=== PATIENT | male | born 1935 | race Caucasian/White ===

== ENCOUNTER 2021-03-18 14:53 | Day surgery (SDC) | payer BC, MEDICARE ==
[~2021-03-18 14:53] MED LIST: Iopamidol-370 76% 500 ML 1 ML ONE
[2021-03-18 15:45] LABS: Hemoglobin 14.1 g/dL (14.0-18.0); Mean Corpuscular HGB CONC 33.9 g/dL (32.0-36.0); Mean Corpuscular Volume 91.3 fL (78.0-98.0); Mean Platelet Volume 12.3 fL (7.4-10.4); Platelet Count 107 thou/uL (130-400); RBC Distribution Width 15.5 % (11.5-14.5); Red Blood Cell (RBC) Count 4.57 mill/uL (4.70-6.10); White Blood Cell (WBC) Count 15.6 thou/uL (4.8-10.8)
[2021-03-18 16:03] LABS: Anisocytosis SLIGHT = 6-15 cells (100X) (0-5/hpf); Band 6 % (5-11); Large Platelets SLIGHT; Lymphocytes 16 % (21-51); MDiff Complete? YES; Monocytes 19 % (0-10); Neutrophil 57 % (42-75); Ovalocytes SLIGHT = 2-5 cells (100X) (0-1/hpf); Platelet Morphology Comment Appears Decreased; Reactive Lymphocytes 2 % (0-10)
[2021-03-18 16:05] LABS: ALT (SGPT) 12 U/L (8-55); AST (SGOT) 14 U/L (5-34); Albumin 4.5 g/dL (3.4-4.8); Alkaline Phosphatase 63 U/L (40-110); Anion Gap 13 mmol/L (10-20); BUN (Urea Nitrogen) 17 mg/dL (8.4-25.7); Bilirubin, Total 1.4 mg/dL (0.2-1.2); Calc. Creatinine Clearance 0 mL/min (70-130); Calcium 9.4 mg/dL (7.8-10.44); Carbon Dioxide 26 mmol/L (23-31); Chloride 104 mmol/L (98-107); Globulin 2.5 g/dL (2.4-3.5); Glucose 132 mg/dL (83-110); Lipase 21 U/L (8-78); Potassium 4.2 mmol/L (3.5-5.1); Sodium 139 mmol/L (136-145)
[2021-03-18 17:18] LABS: Bilirubin Negative (Negative); Blood, Urine Negative (Negative); Glucose, Urine (Dipstick) Negative (Negative); Ketone, Urine 15 mg/dL (Negative); Leukocyte Negative (Negative); Nitrite Negative (Negative); Protein, Urine (Dipstick) Negative (Neg-Trace); Urobilinogen 0.2 mg/dL (Less than 2); pH, Urine 6.5 (5.0-9.0)
[2021-03-18 17:25] LABS: Clarity Clear (Clear)
[2021-03-18 17:27] LABS: Bacteria/HPF None Seen HPF (None Seen); RBC/HPF None Seen HPF (0-3); Squamous Epithelial None Seen HPF (0-3); WBC/HPF None Seen HPF (0-3)
[2021-03-18] MEDS ORDERED: Piperacillin/Tazobactam 3.375 GM VIAL ONE (18:25)
[2021-03-18] MEDS ORDERED: Morphine 4 MG/ML VIAL ONE (18:25)
[2021-03-18] MEDS ORDERED: Ondansetron PF 4 MG/2 ML Vial ONE ×2 (18:25→20:41)
[2021-03-18] MEDS ORDERED: Fentanyl 100 MCG/2 ML VIAL ONE (20:16)
[2021-03-18] MEDS ORDERED: Bupivacaine 0.25% HCL 30 ML VIAL ONE (20:18)
[2021-03-18] MEDS ORDERED: Lidocaine 1% w/Epinephrine 1:100K 30 ML VIAL ONE (20:18)
[2021-03-18 20:21] LABS: SARS-CoV-2 NAA Rapid Test Not Detected (NotDetected)
[2021-03-18] MEDS ORDERED: Rocuronium Bromide 10 MG/ML (10ML VIAL) ONE (20:41)
[2021-03-18] MEDS ORDERED: Succinylcholine 200 MG/10 ml SYRINGE FS ONE (20:41)
[2021-03-18] MEDS ORDERED: ePHEDrine 50 MG/ML VIAL ONE (20:41)
[2021-03-18] MEDS ORDERED: Dexamethasone 20 MG/5 ML VIAL ONE (20:41)
[2021-03-18] MEDS ORDERED: Glycopyrrolate 0.2 MG/ML 5 ML SYRINGE ONE (20:41)
[2021-03-18] MEDS ORDERED: Lidocaine 1% PF 5 ML VIAL ONE (20:41)
[2021-03-18] MEDS ORDERED: PROPOFOL 200 MG/20 ML VIAL ONE (20:41)
[2021-03-18] MEDS ORDERED: PHENYLEPHRINE-NS 100 MCG/ML 10 ML SYRINGE ONE (20:41)
== END 2021-03-18 22:52 | disposition home or self-care (01) ==
LOC: ERS 14:53 → SDC/OP 20:34
PROVIDERS: ATTEND Specialist
PROC: 0DTJ4ZZ Resection of Appendix, Percutaneous Endoscopic Approach (ICD-10-PCS; principal; 2021-03-18)
DX: K35.80 Unspecified acute appendicitis (principal); K57.32 Diverticulitis of large intestine without perforation or abscess without bleeding; N28.1 Cyst of kidney, acquired; N20.0 Calculus of kidney; K76.89 Other specified diseases of liver; I10 Essential (primary) hypertension; E66.9 Obesity, unspecified; Z86.16 Personal history of COVID-19; Z88.8 Allergy status to other drugs, medicaments and biological substances; Z20.822 Contact with and (suspected) exposure to COVID-19
CPT/HCPCS: 36415; 71045; 74177; 80053; 81003; 83690; 84484; 85025; 88304; 93005; J1100; J2270; J2405; J2543; J2704; J3010; J3490; S0020; U0002

== ENCOUNTER 2021-03-20 07:54 | Emergency (ER) | payer BC ==
[2021-03-20 08:24] LABS: Clarity Cloudy (Clear); Glucose, Urine (Dipstick) Unable to Interpret mg/dL (Negative); Ketone, Urine Unable to Interpret mg/dL (Negative); Leukocyte Unable to Interpret (Negative); Nitrite Unable to Interpret (Negative); Protein, Urine (Dipstick) Unable to Interpret mg/dL (Neg-Trace); Specific Gravity, Urine 1.006 (1.002-1.036); pH, Urine 4.4 (5.0-9.0)
[2021-03-20 08:25] LABS: Bilirubin Unable to Interpret (Negative); Blood, Urine Unable to Interpret (Negative); Urobilinogen UNABLE TO INTERPRET mg/dL (Less than 2)
[2021-03-20 08:26] LABS: Bacteria/HPF Rare-Few HPF (None Seen); RBC/HPF Greater than 50 HPF (0-3); Squamous Epithelial None Seen HPF (0-3)
[2021-03-20 08:43] LABS: Hemoglobin 12.9 g/dL (14.0-18.0); Mean Corpuscular HGB CONC 34.1 g/dL (32.0-36.0); Mean Corpuscular Hemoglobin 31.7 pg (27.0-31.0); Mean Corpuscular Volume 92.9 fL (78.0-98.0); Mean Platelet Volume 9.5 fL (7.4-10.4); Platelet Count 79 thou/uL (130-400); RBC Distribution Width 15.8 % (11.5-14.5); Red Blood Cell (RBC) Count 4.08 mill/uL (4.70-6.10); White Blood Cell (WBC) Count 13.8 thou/uL (4.8-10.8)
[2021-03-20 08:59] LABS: Band 8 % (5-11); Lymphocytes 20 % (21-51); MDiff Complete? YES; Monocytes 28 % (0-10); Neutrophil 44 % (42-75); Platelet Morphology Comment Appears Decreased; Polychromasia SLIGHT = 2-3 cells (100X) (0-2/hpf)
[2021-03-20 09:01] LABS: ALT (SGPT) 13 U/L (8-55); AST (SGOT) 16 U/L (5-34); Albumin 4.2 g/dL (3.4-4.8); Alkaline Phosphatase 52 U/L (40-110); Anion Gap 12 mmol/L (10-20); BUN (Urea Nitrogen) 18 mg/dL (8.4-25.7); Bilirubin, Total 0.9 mg/dL (0.2-1.2); Calc. Creatinine Clearance 0 mL/min (70-130); Calcium 9.3 mg/dL (7.8-10.44); Carbon Dioxide 26 mmol/L (23-31); Chloride 102 mmol/L (98-107); Globulin 2.8 g/dL (2.4-3.5); Glucose 123 mg/dL (83-110); Potassium 3.8 mmol/L (3.5-5.1); Sodium 136 mmol/L (136-145)
== END 2021-03-20 09:14 | disposition left against medical advice (07) ==
LOC: ERS 07:54
DX: Z53.21 Procedure and treatment not carried out due to patient leaving prior to being seen by health care provider (principal)
CPT/HCPCS: 36415; 80053; 81003; 81015; 85025

== ENCOUNTER 2021-04-11 15:52 | Outpatient (CLI) | payer MEDICARE, BC ==
[2021-04-11 16:43] LABS: Bilirubin Neg (Negative); Blood, Urine 10 (Negative); Clarity Clear (Clear); Glucose, Urine (Dipstick) Normal (Negative); Ketone, Urine Negative (Negative); Leukocyte 100 (Negative); Nitrite Negative (Negative); Protein, Urine (Dipstick) 15 mg/dl (Neg-Trace); Urobilinogen Normal mg/dL (Less than 2)
[2021-04-11 16:54] LABS: Hemoglobin 12.1 g/dL (13.5-17.5); Mean Corpuscular HGB CONC 33.2 g/dL (32.0-36.0); Mean Corpuscular Hemoglobin 30.3 pg (27.0-33.0); Mean Corpuscular Volume 91.3 fl (81.2-95.1); Platelet Count 145 10x3/uL (150-450); RBC Distribution Width 16.6 % (11.5-14.5); White Blood Cell (WBC) Count 7.7 10x3/uL (3.5-10.5)
[2021-04-11 17:04] LABS: RBC/HPF 0-3 HPF (0-3)
[2021-04-11 17:05] LABS: Bacteria/HPF 1+ HPF (None Seen); Mucous/LPF 1+ LPF (<2+); Squamous Epithelial 0-3 HPF (0-3)
[2021-04-11 17:23] LABS: Anion Gap 14 mmol/L (10-20); BUN (Urea Nitrogen) 17 mg/dL (8.4-25.7); Calc. Creatinine Clearance 0 mL/min (70-130); Calcium 9.5 mg/dL (7.8-10.44); Carbon Dioxide 23 mmol/L (23-31); Chloride 106 mmol/L (98-107); Glucose 105 mg/dL (83-110); Potassium 4.4 mmol/L (3.5-5.1); Sodium 139 mmol/L (136-145)
[2021-04-12 08:53] LABS: SARS-CoV-2 PCR by NAA Not Detected (NotDetected)
== END 2021-04-11 15:53 | disposition home or self-care (01) ==
LOC: LABBT 15:52
PROVIDERS: ATTEND Urology
DX: Z01.812 Encounter for preprocedural laboratory examination (principal); Z20.822 Contact with and (suspected) exposure to COVID-19
CPT/HCPCS: 80048; 81001; 85027; 87086; U0003; U0005

== ENCOUNTER 2021-04-16 06:25 | Day surgery (SDC) | payer MEDICARE, BC ==
[2021-04-15 13:00] VITALS: BMI 33.0
[2021-04-16] MEDS ORDERED: Fentanyl 100 MCG/2 ML VIAL ONE (07:20)
[2021-04-16] MEDS ORDERED: Levofloxacin 500 mg/D5W 100 ml Premix Bag ONE (07:42)
[2021-04-16] MEDS ORDERED: Iothalamate Meglumine 60% 50 ML VIAL FS ONE (08:19)
[2021-04-16] MEDS ORDERED: Lidocaine 1% PF 5 ML VIAL ONE (08:26)
[2021-04-16] MEDS ORDERED: PROPOFOL 200 MG/20 ML VIAL ONE (08:26)
[2021-04-16] MEDS ORDERED: Phenazopyridine HCl 100 MG TAB ONE (09:19)
[2021-04-16] MEDS ORDERED: Oxybutynin 5 MG TAB ONE (09:19)
== END 2021-04-16 12:26 | disposition home or self-care (01) ==
LOC: SDC 06:25
PROVIDERS: ATTEND Urology
PROC: 0TBB8ZX Excision of Bladder, Via Natural or Artificial Opening Endoscopic, Diagnostic (ICD-10-PCS; principal; 2021-04-16)
PROC: 3E0K705 Introduction of Other Antineoplastic into Genitourinary Tract, Via Natural or Artificial Opening (ICD-10-PCS; 2021-04-16)
DX: N30.01 Acute cystitis with hematuria (principal); N30.21 Other chronic cystitis with hematuria; N32.89 Other specified disorders of bladder; N40.1 Benign prostatic hyperplasia with lower urinary tract symptoms; R33.8 Other retention of urine; Z79.899 Other long term (current) drug therapy; Z88.8 Allergy status to other drugs, medicaments and biological substances
CPT/HCPCS: 51720; 52235; 74420; J9280; Q9961; 88305; J1956; J2704; J3010